=== PATIENT | female | born 1980 | race African-American/Black ===

== ENCOUNTER 2016-04-19 10:03 | Emergency (ER) | payer MEDICAID ==
[~2016-04-19] VITALS: Ht 160 cm; Wt 93.6 kg
[2016-04-19 10:06] VITALS: BP 128/76; PULSE 86; RESP 16; TEMP 98.2; O2SAT 95
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
[2016-04-19] MEDS ORDERED: IBUP800T23 PO (11:21)
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
[2016-04-19] MEDS ORDERED: IBUPROFEN 800 MG TAB PO ONE (13:45)
== END 2016-04-19 14:13 | disposition home or self-care (01) ==
LOC: NEPB 10:03
DX: S00.83XA Contusion of other part of head, initial encounter (principal); R68.84 Jaw pain; R51 Headache; Y04.2XXA Assault by strike against or bumped into by another person, initial encounter
CPT/HCPCS: 70450; 70486; 84703